=== PATIENT | female | born 1985 | race Caucasian/White ===

== ENCOUNTER 2022-01-01 08:17 | Observation (INO) ==
[2022-01-01] MEDS ORDERED: Naloxone 0.4 MG/ML INJ IVP PRN (10:22)
[2022-01-01] MEDS ORDERED: Famotidine 20 MG/2 ML VIAL IVP PRN (10:22)
[2022-01-01] MEDS ORDERED: Metoclopramide 10 MG/2 ML VIAL IVP PRN (10:22)
[2022-01-01] MEDS ORDERED: Magnesium Sulf 20 gm/SW 500mL 20 GM/500 ML IV.SOLN IVC SCH (10:30)
[2022-01-01] MEDS ORDERED: Furosemide 20 MG/2 ML VIAL IVP ONE (10:32)
[2022-01-01 10:49] LABS: Amphetamine Screen,Urine Negative ng/mL (Cutoff=1000); Barbiturate Screen,Urine Negative ng/mL (Cutoff=200); Benzodiazepines Screen,Urine Negative ng/mL (Cutoff=200); Cannabinoid Screen,Urine Negative ng/mL (Cutoff = 50); Cocaine Screen,Urine Negative ng/mL (Cutoff= 300); Opiate Screen,Urine Negative ng/mL (Cutoff=300); Phencyclidine Screen,Urine Negative ng/mL (Cutoff=25)
[2022-01-01] MEDS ORDERED: *HR* Propofol 200 MG/20 ML VIAL IVP ONE (10:50)
[2022-01-01] MEDS ORDERED: *HR* Rocuronium Bromide 50 MG/5 ML VIAL ONE ×2 (10:50→10:53)
[2022-01-01] MEDS ORDERED: *HR* Etomidate 40 MG/20 ML VIAL IVP ONE (10:51)
[2022-01-01] MEDS ORDERED: EPHEDrine 50 MG/ML VIAL ONE (10:54)
[2022-01-01 11:39] LABS: Aspartate Amino Transferase 895 Units/L (13-39); BUN/Creatinine Ratio 21 (6-26); Blood Urea Nitrogen 23 mg/dL (6-20); Troponin I 0.53 ng/mL (< 0.04); Uric Acid 8.6 mg/dL (2.3-7.6); eGFR For African Americans > 60 (> 60); eGFR For Non-African Americans 57 (> 60)
[2022-01-01 12:16] LABS: Alanine Aminotransferase 528 Units/L (7-52); Lactate Dehydrogenase 2469 Units/L (140-271)
[2022-01-01 12:27] VITALS: O2SAT 98
[2022-01-03 10:40] LABS: Creatinine,Urine 72 mg/dL; Protein/Creatinine Ratio,Urine 17.29 mg/mg (0.00-0.20)
== END 2022-01-01 11:50 | disposition short-term general hospital (02) ==
LOC: 1NENULAB
PROVIDERS: ADMIT Obstetrics & Gynecology; ATTEND Obstetrics & Gynecology